=== PATIENT | male | born 1965 | race Caucasian/White ===

== ENCOUNTER 2019-03-01 14:10 | Emergency (ER) | payer OTHER ==
[~2019-03-01] VITALS: Ht 185.4 cm; Wt 95.3 kg
[2019-03-01] MEDS ORDERED: ZOLOFT25 MG PO (14:43)
[2019-03-01] MEDS ORDERED: AZULFIDINE500 MG PO (14:43)
[2019-03-01 15:30] VITALS: BP 113/64
[2019-03-01] MEDS ORDERED: MIRALAX17 GM PO (16:00)
== END 2019-03-01 15:30 | disposition home or self-care (01) ==
LOC: ER 14:10
DX: K59.00 Constipation, unspecified (principal); F17.210 Nicotine dependence, cigarettes, uncomplicated; M06.9 Rheumatoid arthritis, unspecified